=== PATIENT | male | born 1995 | race Caucasian/White ===

== ENCOUNTER 2019-08-22 20:51 | Emergency (ER) | payer OTHER ==
--- NOTE | 2019-08-23 00:16 | ED Physician Documentation ---
PD HPI ABD PAIN - Stated complaint Stated Complaint: LLQ ABD PX - Chief complaint Chief Complaint: Abd Pain - History obtained from History obtained from: Patient - History of Present Illness Timing - onset: How many days ago (2-3) Timing - duration: Days Timing - details: Gradual onset Pain level now: 6 Quality: Pain Location: LLQ Improved by: Laying still Worsened by: Palpation Associated symptoms: No: Fever, Nausea, Vomiting, Diarrhea, Constipation Similar symptoms before: Has not had sx before Recently seen: Not recently seen Review of Systems Constitutional: reports: Reviewed and negative Cardiac: reports: Reviewed and negative Respiratory: reports: Reviewed and negative GI: reports: Abdominal Pain. denies: Nausea, Vomiting, Constipation, Diarrhea : denies: Dysuria, Frequency Skin: reports: Reviewed and negative PD PAST MEDICAL HISTORY - Past Medical History Past Medical History: No - Past Surgical History Past Surgical History: Yes General: Other - Present Medications Home Medications: Ambulatory Orders Medication Instructions Recorded Confirmed Amox/Clav 875/125 [Augmentin] 1 each PO Q12H #19 tablet 08/23/19 - Allergies Allergies/Adverse Reactions: Allergies Allergy/AdvReac Type Severity Reaction Status Date / Time No Known Drug Allergies Allergy Verified 08/23/19 01:45 - Social History Does the pt smoke?: No Smoking Status: Never smoker Does the pt drink ETOH?: No Does the pt have substance abuse?: No - Immunizations Immunizations are current?: Yes - POLST Patient has POLST: No PD ED PE NORMAL - Vitals Vital signs reviewed: Yes - General General: Alert and oriented X 3, No acute distress, Well developed/nourished - Cardiac Cardiac: RRR, No murmur - Respiratory Respiratory: No respiratory distress, Clear bilaterally - Abdomen Abdomen: Soft, Non distended - Back Back: No CVA TTP - Derm Derm: Normal color, Warm and dry, No rash PD ED PE EXPANDED - Abdomen Abdomen: Tender to palpation, LLQ. No: Rebound Results - Vitals Vitals: Oxygen O2 Source Room air - Labs Labs: Laboratory Tests 08/23/19 08/23/19 08/23/19 00:31 00:31 00:39 WBC 9.2 RBC 4.60 L Hgb 13.5 L Hct 40.0 L MCV 87.0 MCH 29.3 MCHC 33.8 RDW 13.1 Plt Count 290 MPV 9.7 Neut # (Auto) 4.3 Lymph # (Auto) 3.8 H Davison # (Auto) 0.6 Eos # (Auto) 0.3 Baso # (Auto) 0.1 Absolute Nucleated RBC 0.00 Nucleated RBC % 0.0 Sodium 141 Potassium 4.0 Chloride 102 Carbon Dioxide 28 Anion Gap 11.0 BUN 19 Creatinine 0.9 Estimated GFR (MDRD) 104 Glucose 99 Calcium 9.7 Total Bilirubin 0.4 AST 33 ALT 86 H Alkaline Phosphatase 43 Total Protein 7.9 Albumin 4.9 Globulin 3.0 Albumin/Globulin Ratio 1.6 Lipase 35 Urine Color YELLOW Urine Clarity CLEAR Urine pH 6.0 Ur Specific [place]ley 1.025 Urine Protein NEGATIVE Urine Glucose (UA) NEGATIVE Urine Ketones NEGATIVE Urine Occult Blood NEGATIVE Urine Nitrite NEGATIVE Urine Bilirubin NEGATIVE Urine Urobilinogen 0.2 (NORMAL) Ur Leukocyte Esterase NEGATIVE Ur Microscopic Review NOT INDICATED Urine Culture Comments NOT INDICATED - Rads (name of study) CT A/P w/ Radiology: Prelim report reviewed, See rad report PD MEDICAL DECISION MAKING - ED course Complexity details: reviewed results, re-evaluated patient, considered differential, d/w patient Departure - Departure Disposition: 01 Home, Self Care Clinical Impression: Diverticulitis of gastrointestinal tract Condition: Good Instructions: ED Diverticulitis Follow-Up: KAYE CEDENO MD [Primary Care Provider] - Prescriptions: Amox/Clav 875/125 [Augmentin] 1 each PO Q12H #19 tablet Discharge Date/Time: 08/23/19 01:56
[2019-08-23 00:37] LABS: BASOPHILS # (AUTO) 0.1 10^3/uL (0.0-0.1); EOSINOPHILS # (AUTO) 0.3 10^3/uL (0.0-0.7); EOSINOPHILS % (AUTO) 3.7 %; HGB - HEMOGLOBIN 13.5 g/dL (14.0-18.0); LYMPHOCYTES # (AUTO) 3.8 10^3/uL (1.5-3.5); LYMPHOCYTES % (AUTO) 41.3 %; MEAN CORPUSCULAR HEMOGLOBIN 29.3 pg (27.0-31.0); MEAN CORPUSCULAR HGB CONC 33.8 g/dL (32.0-36.0); MEAN PLATELET VOLUME 9.7 fL (7.4-11.4); MONOCYTES # (AUTO) 0.6 10^3/uL (0.0-1.0); MONOCYTES % (AUTO) 6.8 %; NEUTROPHILS # (AUTO) 4.3 10^3/uL (1.5-6.6); NEUTROPHILS % (AUTO) 46.9 %; PLT - PLATELET COUNT 290 10^3/uL (130-450); RED CELL DISTRIBUTION WIDTH 13.1 % (12.0-15.0); WHITE BLOOD COUNT 9.2 x10^3/uL (4.8-10.8)
[2019-08-23 00:43] LABS: BILIRUBIN,URINE NEGATIVE (NEGATIVE); CLARITY,URINE CLEAR (CLEAR); GLUCOSE, URINE (UA) NEGATIVE (NEGATIVE); KETONES,URINE (UA) NEGATIVE (NEGATIVE); LEUKOCYTE ESTERASE, URINE NEGATIVE (NEGATIVE); NITRITE,URINE NEGATIVE (NEGATIVE); OCCULT BLOOD,URINE NEGATIVE (NEGATIVE); PROTEIN,URINE NEGATIVE (NEGATIVE); UROBILINOGEN,URINE 0.2 (NORMAL) E.U./dL (NORMAL)
[2019-08-23] MEDS ORDERED: IOVERSOL 320 100 ML VIAL IVP ONE ×2 (00:47→01:20)
[2019-08-23 00:51] LABS: ALBUMIN 4.9 g/dL (3.2-5.5); ALBUMIN/GLOBULIN RATIO 1.6 (1.0-2.2); BILIRUBIN,TOTAL 0.4 mg/dL (0.2-1.0); CALCIUM 9.7 mg/dL (8.5-10.3); CREATININE 0.9 mg/dL (0.6-1.2); TOTAL PROTEIN 7.9 g/dL (6.7-8.2)
--- NOTE | 2019-08-23 01:32 | CT Report ---
Reason: LLQ pain Procedure Date: 08/23/2019 Accession Number: [id number] / [id number] Procedure: CT - Abdomen/Pelvis W CPT Code: Final Report FULL RESULT: EXAM: CT ABDOMEN AND PELVIS EXAM DATE: 08/23/2019 01:18 AM. CLINICAL HISTORY: Left lower quadrant abdominal pain COMPARISONS: None. TECHNIQUE: Routine helical CT imaging was performed through the abdomen and pelvis. IV contrast: 100 mL OPTIRAY 320. Enteric contrast: No. Reconstructions: Coronal and sagittal. In accordance with CT protocol optimization, one or more of the following dose reduction techniques were utilized for this exam: automated exposure control, adjustment of mA and/or KV based on patient size, or use of iterative reconstructive technique. FINDINGS: The lung bases are clear. The visible heart is normal in size. There is no pericardial effusion. There is a suggestion of hepatic steatosis. No focal intrahepatic mass is seen. The gallbladder is normal. There is no biliary dilatation. The spleen, pancreas, and adrenal glands are normal. The kidneys are normal and without evidence of mass or hydronephrosis. Diverticula are seen throughout the colon. There is mild wall thickening in the proximal sigmoid colon with adjacent fat stranding. No loculated fluid collection is seen. There is no evidence of free intraperitoneal air. The remaining intestines are normal in appearance. The appendix is normal. There is no evidence of bowel obstruction. No ascites or lymphadenopathy is seen. The bladder is normal. The prostate gland is normal. A phlebolith is seen in the pelvis. The osseous structures are intact. No suspicious lytic or blastic lesions are seen. The spinal alignment is maintained. IMPRESSION: Sigmoid colon diverticulitis without evidence of abscess. RADIA
[2019-08-23] MEDS ORDERED: AMOX/CLAV 875 MG/125 MG TABLET PO STA (01:39)
[2019-08-23 01:56] VITALS: BP 126/69
== END 2019-08-23 01:56 | disposition home or self-care (01) ==
LOC: ED 20:51
DX: K57.32 Diverticulitis of large intestine without perforation or abscess without bleeding (principal)
CPT/HCPCS: 36415; 74177; 80053; 81003; 83690; 85025; 99284; A9270; Q9967; 81001; 87086

== ENCOUNTER 2020-04-05 12:40 | Outpatient (CLI) | payer OTHER ==
--- NOTE | 2020-04-05 15:07 | MRI Report ---
PROCEDURE: Hip RT W/O INDICATIONS: RIGHT HIP PAIN TECHNIQUE: Noncontrast coronal T1 spin echo and STIR through the bony pelvis. Coronal and axial T2 fast spin ec ho with fat saturation, sagittal T1 spin echo, and oblique axial T2 fast spin echo with fat saturatio n through the hip. COMPARISON: None. FINDINGS: Image quality: Excellent. Bones and joints: Bone marrow of the pelvic ring and proximal femurs show normal signal throughout. No intraosseous lesions or fractures. No avascular necrosis of the femoral heads. The visualized l ower lumbar spine appears normally aligned. Tendons: The gluteus medius and minimus tendons appear intact, without associated muscle atrophy. T he iliopsoas tendon appears intact, without adjacent bursal fluid collections. The origin of the ham string tendon is intact at the ischial tuberosity. Labrum and cartilage: The acetabular labrum appears intact in the absence of intra-articular contras t. Cartilage surface of the femoral head appears of normal thickness. The alpha angle of the femur is within normal limits at less than 55 degrees. Soft tissues: Visualized muscles demonstrate normal bulk and internal signal. The proximal sciatic neurovascular bundle appears normal adjacent to the hamstring tendons. No free pelvic fluid. Bladde r wall thickness is normal. Genitourinary structures and bowel loops appear normal where visualized. IMPRESSION: Negative evaluation of the pelvis and right hip. No explanation for right hip pain. Reviewed by: Michelle Odell MD on 04/05/2020 3:06 PM PDT Approved by: Michelle Odell MD on 04/05/2020 3:06 PM PDT Station ID: [id number]
== END 2020-04-05 12:41 | disposition home or self-care (01) ==
LOC: DI 12:40
DX: M25.551 Pain in right hip (principal)

== ENCOUNTER 2020-04-15 15:44 | Emergency (ER) | payer OTHER ==
[2020-04-15 15:53] VITALS: BP 146/83
--- NOTE | 2020-04-15 15:59 | ED Physician Documentation ---
History of Present Illness - Stated complaint Stated Complaint: LUMP ON HEAD, HEADACHE - Chief complaint Chief Complaint: Heent - History obtained from History obtained from: Patient - Additonal information Additional information: 1 day mild bitemporal/retroorbital CASTILLO, assoc with body aches, noted painful lump behind R ear. No fevers. Mild rhinorrhea. 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 Review of Systems Constitutional: denies: Fever, Chills Nose: reports: Rhinorrhea / runny nose Throat: denies: Sore throat GI: denies: Abdominal Pain, Nausea, Vomiting : denies: Dysuria PD PAST MEDICAL HISTORY - Past Surgical History Past Surgical History: Yes General: Other - Present Medications Home Medications: Ambulatory Orders Medication Instructions Recorded Confirmed Amox/Clav 875/125 [Augmentin] 1 each PO Q12H #19 tablet 08/23/19 - Allergies Allergies/Adverse Reactions: Allergies Allergy/AdvReac Type Severity Reaction Status Date / Time No Known Drug Allergies Allergy Verified 04/15/20 15:53 - Social History Does the pt smoke?: No Smoking Status: Never smoker Does the pt drink ETOH?: No Does the pt have substance abuse?: No - Immunizations Immunizations are current?: Yes - POLST Patient has POLST: No PD ED PE NORMAL - Vitals Vital signs reviewed: Yes - General General: Alert and oriented X 3, No acute distress - HEENT HEENT: Other (This alone right retroauricular lymphadenopathy with normal TMs) - Neck Neck: Supple, no meningeal sign, No bony TTP, No adenopathy (other than above) - Neuro Neuro: Alert and oriented X 3, Normal speech - Psych Psych: Normal mood, Normal affect Results - Vitals Vitals: Vital Signs - 24 hr 04/15/20 15:51 Temperature 36.7 C Heart Rate 89 Respiratory 16 Rate Blood Pressure 146/83 H O2 Saturation 99 Oxygen O2 Source Room air PD MEDICAL DECISION MAKING - ED course ED course: 24-year-old gentleman with retro-orbital headache, body aches, runny nose, and retroauricular lymphadenopathy. This is very consistent with viral syndrome. I discussed with him the need for a Covid test and [place]. Discussed need for home quarantine until results are negative. Otherwise seems like a nonspecific viral syndrome treated conservatively with fluids and ibuprofen. Departure - Departure Disposition: 01 Home, Self Care Clinical Impression: Viral syndrome, Posterior auricular lymphadenopathy Condition: Good Record reviewed to determine appropriate education?: Yes Instructions: ED Viral Syndrome Comments: Ibuprofen as needed for aches And pains. Return if worse. Since the [facility] is already doing a Covid test we are not repeating it, but she should be out of work until that is negative. Forms: Activity restrictions
== END 2020-04-15 16:15 | disposition home or self-care (01) ==
LOC: ED 15:44
DX: B34.9 Viral infection, unspecified (principal); R59.0 Localized enlarged lymph nodes
CPT/HCPCS: 99282